=== PATIENT | male | born 1970 | race Caucasian/White ===

== ENCOUNTER 2016-07-06 10:28 | Emergency (ER) | payer MEDICAID ==
[2016-07-06 10:41] VITALS: O2SAT 96
--- NOTE | 2016-07-06 11:12 | EDPHY ---
H & P Time Seen by Provider: 07/06/16 10:31 HPI/ROS: CHIEF COMPLAINT: there is swelling underneath the left jaw, drainage HISTORY OF PRESENT ILLNESS: this is a 45-year-old male who had an area of pus collection underneath the left mandible approximately 3 weeks ago. Seen at an outside clinic and had a needle aspiration. He believes he was on a course of Bactrim therapy. Does not believe he had a problem related to MRSA. Ultimately this lesion never really went away. He presents today because now it is getting progressively worse over last 2-4 weeks. He attempted to manipulated and drains of fluid yesterday which was more of a thin yellow rather thick pus. There is no gelatinous material. He has had multiple episodes of these areas of superficial skin abscesses underneath both sides of the mandible over the years. He has never had to have them actually drained, invariably the use E drained spontaneously and do not come back until much later. The area is somewhat painful, does not radiate, is not affecting his voice is able swallow well. It is just simply frustrating thing for him that is persistent this long wears a typically goes away much sooner as well as the size. It has never been as big as this. It is mildly uncomfortable REVIEW OF SYSTEMS: General: Denies any fevers or chills ENT: No radiation of pain to the ear. He is having no change in his ability to phonate or to swallow. There is no drainage from the teeth. Neck: No anterior adenopathy, except for the left submandibular area of soft tissue swelling Smoking Status: Light smoker Physical Exam: General Appearance: Alert, no distress. Afebrile. Normal phonation. No respiratory distress Eyes: Pupils equal and round no pallor or injection. No icterus. EOMI Face: Just at the margin of the left mandible in the midbody just underneath there is a 4 x 3 cm raised area that is indurated and minimally fluctuant. When I press on the area a firmly few areas of what appear to suggest might be some fluid. There is at least 3 areas of denuded skin overlying this site. Two of them look more like abrasions and the 1 on the cephalad area does appear to be more like a puncture, perhaps this is the site from 3 months ago. However I am unable to express any pus from this area. The surface texture is somewhat undulating as well as the underneath texture. It is freely mobile and not adherent underneath tissue. It is above the atypical area I would see for the submandibular gland as well as being above the anterior neck glands - thereby did not appear to be such. Ultrasound was used to try to locate fluid however due to the irregularity I cannot accurately get a sense of the architecture. ENT, Mouth: Mucous membranes moist. Pharynx without erythema or exudate. Neck: See above Constitutional: Initial Vital Signs Temperature (C) 37.3 C 07/06/16 10:32 Heart Rate 87 07/06/16 10:32 Respiratory Rate 18 07/06/16 10:32 Blood Pressure 133/106 H 07/06/16 10:32 O2 Sat (%) 96 07/06/16 10:32 O2 Delivery Mode Room Air Allergies/Adverse Reactions: No Known Allergies Allergy (Verified 07/06/16 10:37) Home Medications: Medication Instructions Recorded Cephalexin [Keflex (*)] 500 mg PO TID #42 cap 07/06/16 Medical Decision Making Procedures: Procedure: Abscess drainage Options presented to [patient], consented to abscess drainage. He understood that approximately at least 20% of the time, on repeat visit these abscess need to be reopened. Further due to the induration texture I was scapular might be fluid here in the 1st place. However we did discuss aspiration attempts. After skin prep with [chloraseptic] the wound was anesthesized with [locally infiltrated] with [lidocaine 1 %] [with epinephrine] the wound was. After 15 minutes I then went ahead and explored the wound, from a cephalad direction with an 18 gauge needle. Essentially was unable to get any significant pus except for did return the fluid that I injected previously. This was repeated at another area a little bit further toward the midline. A specimen of the drainage material from these punctures was sent for culture. Patient tolerated procedure well. ED Course/Re-evaluation: From the beginning was somewhat skeptical about the ability to help this man out in a definitive manner. As noted above there really was not much in this is rather indurated heaped up area. Thereby I suspect they were looking at a surgical procedure to clean it there and debride the underlying material of the scarred, abscess changes. Thus was referred to General surgery Of note, cultures are pending. He was placed on 2 weeks of Keflex therapy We talked about pain management for the surgical site. He feels to be doing well with Tylenol ibuprofen is he has chronic leg and back pain from prior injuries that far exceed the pain in this left submandibular region. Differential Diagnosis: Differential Includes but is not limited to: Abscess, cervical adenopathy, fat necrosis, tuberculous transformation of a lymph node Departure - Departure Disposition: Home, Routine, Self-Care Clinical Impression: Abscess Condition: Good Instructions: Abscess (ED) Additional Instructions: Continue to use the warm compresses Call the general surgeon for a follow-up Take yogurt with active cultures as longer on the antibiotic Tylenol and Advil works well together the combination: Tylenol 1000 mg and 600 mg every 8 hours. Referrals: NONE *PRIMARY CARE P,. [Primary Care Provider] - As per Instructions Ian Curtis MD [Medical Doctor] - 5-7 days, call for appt. Prescriptions: Cephalexin [Keflex (*)] 500 mg PO TID #42 cap
[2016-07-06 12:11] VITALS: BP 147/87; PULSE 81; RESP 16; TEMP 98.8
== END 2016-07-06 12:05 | disposition home or self-care (01) ==
LOC: CED 10:28
DX: L02.01 Cutaneous abscess of face (principal); F17.200 Nicotine dependence, unspecified, uncomplicated